=== PATIENT | female | born 2000 | race Caucasian/White ===

== ENCOUNTER 2018-02-22 13:07 | Emergency (ER) | payer BC ==
--- NOTE | 2018-02-22 14:22 | EDPHY ---
H & P Stated Complaint: Fever, chills. 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 She initially presented to [facility] yesterday. She had negative rapid strep, negative mono spot and negative influenza. Patient has had persistent subjective fevers at home with myalgias and neck stiffness and headache. Head pain is about a 6/10. No relief with ibuprofen or acetaminophen. No nausea or vomiting. No skin rash. No chest pain. She was seen again at [facility] today who sent her in to rule out meningitis. ROS: 10 systems were reviewed and were negative except those elements noted in the HPI. PMH: Denies Social History: No smoking, no alcohol, no recreational drug use Family History: non-contributory Physical Exam: Gen: Awake, Alert, No Distress HEENT: Ears: Bilateral TMs are normal Nose: no rhinorrhea Eyes: PERRLA, EOMI Mouth: Moist mucosa mild oropharyngeal erythema without edema or exudate Neck: Supple, no JVD, mild meningismus, moderate cervical lymphadenopathy Chest: nontender, lungs clear to auscultation Heart: S1, S2 normal, no murmur Abd: Soft, non-tender, no guarding Back: no CVA tenderness, no midline tenderness Ext: no edema, non-tender Skin: no rash Neuro: CN II-XII intact, Sensation grossly intact, Strength 5/5 in bilateral upper and lower extremities - Personal History LMP (Females 10-55): Unknown Current Tetanus/Diphtheria Vaccine: Unsure Current Tetanus Diphtheria and Acellular Pertussis (TDAP): Unsure - Medical/Surgical History Hx Asthma: No Hx Chronic Respiratory Disease: No Hx Diabetes: No Hx Cardiac Disease: No Hx Renal Disease: No Hx Cirrhosis: No Hx Alcoholism: No Hx HIV/AIDS: No Hx Splenectomy or Spleen Trauma: No Other PMH: Tonsillectomy 12/2017 - Social History Smoking Status: Never smoked Constitutional: Initial Vital Signs Temperature (C) 37.3 C 02/22/18 13:14 Heart Rate 95 02/22/18 13:14 Respiratory Rate 16 02/22/18 13:14 Blood Pressure 106/68 02/22/18 13:14 O2 Sat (%) 97 02/22/18 13:14 O2 Delivery Mode Room Air Allergies/Adverse Reactions: No Known Allergies Allergy (Verified 02/22/18 13:14) Home Medications: Medication Instructions Recorded Control 02/22/18 Medical Decision Making Procedures: Procedure: Lumbar puncture. Indication: Headache, fever, rule out meningitis After verbal informed consent from patient explaining the risks including infection, bleeding, and neurologic damage, a lumbar puncture was performed after the patient was prepped and draped in the usual fashion. The back was anesthetized with 1% lidocaine. Approximately 4 cc of clear fluid was obtained. Opening pressure was not obtained. There were no complications. The procedure was performed by myself. ED Course/Re-evaluation: CSF is unremarkable. Will discharge with follow up with [facility], return for any concerns. Departure - Departure Disposition: Home, Routine, Self-Care Clinical Impression: Viral syndrome Condition: Good Instructions: Viral Syndrome (ED) Additional Instructions: Alternate acetaminophen (1000 mg) with ibuprofen (400 mg) every 4 hours as needed for fevers, chills, aches or pain. Follow up with [facility] in 2 days for recheck. Return to the emergency department for uncontrolled fever, cough, difficulty breathing, abdominal pain, vomiting, or any other concerns. Referrals: [facility] ,. [Clinic] - As per Instructions
[2018-02-22 15:12] VITALS: BP 99/56
== END 2018-02-22 15:18 | disposition home or self-care (01) ==
PROC: 009U3ZZ Drainage of Spinal Canal, Percutaneous Approach (ICD-10-PCS; principal; 2018-02-22)
DX: B34.9 Viral infection, unspecified (principal); Z90.89 Acquired absence of other organs

== ENCOUNTER 2018-09-03 23:10 | Emergency (ER) | payer BC ==
[2018-09-03 23:17] VITALS: BP 105/55
[2018-09-03] MEDS ORDERED: NITROFURANTOIN 100MG PREPACK#2 BTL TAKEHOME ONE (23:55)
[2018-09-03] MEDS ORDERED: PHENAZOPYRIDINE HCL 200 MG TAB PO ONE (23:55)
--- NOTE | 2018-09-03 23:56 | EDPHY ---
H & P Stated Complaint: Bladder infection Time Seen by Provider: 09/03/18 23:50 HPI/ROS: Chief Complaint: Frequent urination, burning with urination HPI: 17-year-old woman presenting with 1 day of urinary urgency frequency and burning with urination. She is sexually active. Uses oral contraception always use a barrier device. No history of STIs. No fevers or chills. Some low pelvic cramping. No back pain. No nausea or vomiting. No vaginal discharge. ROS: 10 systems were reviewed and were negative except those elements noted in the HPI. PMH: Denies Social History: No smoking, no alcohol, no recreational drug use Family History: non-contributory Physical Exam: Gen: Awake, Alert, No Distress HEENT: Nose: no rhinorrhea Eyes: PERRLA, EOMI Mouth: Moist mucosa Neck: Supple, no JVD Chest: nontender, lungs clear to auscultation Heart: S1, S2 normal, no murmur Abd: Soft, non-tender, no guarding Back: no CVA tenderness, no midline tenderness Ext: no edema, non-tender Skin: no rash Neuro: CN II-XII intact, Sensation grossly intact, Strength 5/5 in bilateral upper and lower extremities - Personal History LMP (Females 10-55): 8-14 Days Ago Current Tetanus/Diphtheria Vaccine: Yes Current Tetanus Diphtheria and Acellular Pertussis (TDAP): Yes - Medical/Surgical History Hx Asthma: No Hx Chronic Respiratory Disease: No Hx Diabetes: No Hx Cardiac Disease: No Hx Renal Disease: No Hx Cirrhosis: No Hx Alcoholism: No Hx HIV/AIDS: No Hx Splenectomy or Spleen Trauma: No Other PMH: Tonsillectomy 12/2017, depression - Social History Smoking Status: Never smoked Constitutional: Initial Vital Signs Temperature (C) 36.8 C 09/03/18 23:15 Heart Rate 89 09/03/18 23:15 Respiratory Rate 18 09/03/18 23:15 Blood Pressure 105/55 L 09/03/18 23:15 O2 Sat (%) 96 09/03/18 23:15 O2 Delivery Mode Room Air Allergies/Adverse Reactions: No Known Allergies Allergy (Verified 02/22/18 13:14) Home Medications: Medication Instructions Recorded Control 02/22/18 Nitrofurantoin Monohyd/M-Cryst 100 mg PO BID #8 capsule 09/03/18 [Macrobid 100 mg Capsule] Phenazopyridine HCl [Pyridium] 200 mg PO TID #6 tab 09/03/18 Prozac 10 MG (*) 09/03/18 traZODone 09/03/18 Medical Decision Making - Data Points Medications Given: Discontinued Medications Nitrofurantoin (Macrobid 100mg Prepack#2) 1 btl TAKEHOME EDNOW ONE PRN Reason: Protocol Stop: 09/03/18 23:56 Last Admin: 09/04/18 00:04 Dose: 1 btl Phenazopyridine HCl (Pyridium) 200 mg PO EDNOW ONE Stop: 09/03/18 23:56 Last Admin: 09/04/18 00:04 Dose: 200 mg Departure - Departure Disposition: Home, Routine, Self-Care Clinical Impression: Urinary tract infection Condition: Good Instructions: Nitrofurantoin Combination (By mouth), Urinary Tract Infection in Women (ED) Additional Instructions: Please take your full course of antibiotics. Follow up at [facility] in 3-4 days if symptoms are not improving. Referrals: [facility] [Clinic] - As per Instructions Prescriptions: Nitrofurantoin Monohyd/M-Cryst [Macrobid 100 mg Capsule] 100 mg PO BID #8 capsule Phenazopyridine HCl [Pyridium] 200 mg PO TID #6 tab
== END 2018-09-04 00:10 | disposition home or self-care (01) ==
DX: N39.0 Urinary tract infection, site not specified (principal)